=== PATIENT | male | born 1980 | race Caucasian/White ===

== ENCOUNTER 2018-09-29 08:41 | Emergency (ER) | payer OTHER ==
[~2018-09-29] VITALS: Ht 175.3 cm; Wt 79.8 kg
[2018-09-29 08:55] VITALS: Ht 175.3 cm; Wt 79.8 kg
[2018-09-29 09:50] LABS: microscopic required? YES; urine erythrocyte 3+ (NEGATIVE)
[2018-09-29 12:23] VITALS: BP 129/81
== END 2018-09-29 12:23 | disposition home or self-care (01) ==
LOC: ED 08:41
PROVIDERS: Emergency Medicine
DX: N13.2 Hydronephrosis with renal and ureteral calculous obstruction (principal); R31.9 Hematuria, unspecified; J45.909 Unspecified asthma, uncomplicated; Z98.890 Other specified postprocedural states; Z91.013 Allergy to seafood